=== PATIENT | female | born 1990 | race Caucasian/White ===

== ENCOUNTER → 2016-08-16 10:07 | Outpatient (CLI) | payer OTHER | END | disposition home or self-care (01) | LOC: D.US 08-14 10:30 | DX: R10.11 Right upper quadrant pain (principal) ==

== ENCOUNTER 2018-09-13 22:13 | Emergency (ER) | payer OTHER ==
[~2018-09-13] VITALS: Ht 154.9 cm; Wt 111.6 kg
[2018-09-13 22:21] VITALS: Ht 154.9 cm; Wt 111.6 kg
[2018-09-13] MEDS ORDERED: LITHIUM CARBON150 MG PO (22:23)
[2018-09-13] MEDS ORDERED: ZANTAC300 MG PO (22:23)
[2018-09-13] MEDS ORDERED: ZYRTEC10 MG PO (22:23)
[2018-09-13] MEDS ORDERED: LATUDA40 MG PO (22:23)
[2018-09-13] MEDS ORDERED: ATIVAN1 MG PO (22:24)
[2018-09-13 22:46] LABS: APPEARANCE CLEAR (CLEAR); BACTERIA FEW /hpf (NONE SEEN); BILIRUBIN NEGATIVE (NEGATIVE); COLOR YELLOW (YELLOW); EPITHELIAL CELLS OCC /hpf (0-5); GLUCOSE NEGATIVE (NEGATIVE); HCG URINE NEGATIVE (NEGATIVE); KETONE NEGATIVE (NEGATIVE); NITRITE NEGATIVE (NEGATIVE); PROTEIN NEGATIVE (NEGATIVE); RED CELLS - URINE NONE SEEN /hpf (0-5); SPECIFIC GRAVITY 1.015 (1.005-1.020); UROBILINOGEN NORMAL (NORMAL)
[2018-09-13 23:02] LABS: BASOPHILS 0.1 % (0-2); EOSINOPHILS 0.9 % (0-7); HEMATOCRIT 41.1 % (36.0-48.0); HEMOGLOBIN 14.7 g/dL (12-16); IMMATURE GRANULOCYTES 0.3 % (0-5); LYMPHOCYTES 19.2 % (15-50); MCH 32.2 pg (26.0-34.0); MCHC 35.8 g/dL (31.0-37.0); MCV 89.9 fL (80.0-100.0); MEAN PLATELET VOLUME 9.6 fL (7.4-10.4); MONOCYTES 10.2 % (2-11); NEUTROPHILS 69.3 % (40-80); PLATELET COUNT 256 10x3/uL (130-400); RBC 4.57 10x6/uL (4.00-5.40); RDW 12.6 % (11.5-14.5); WBC 14.1 10x3/uL (4.8-10.8)
[2018-09-13 23:28] LABS: ALBUMIN 3.7 g/dL (3.4-5.0); ANION GAP 12.6 mmol/L (8-16); BILIRUBIN - TOTAL 0.49 mg/dL (0.2-1.3); CALCIUM 8.6 mg/dL (8.5-10.1); POTASSIUM - SERUM 3.6 mmol/L (3.5-5.1); PROTEIN - SERUM 7.6 g/dL (6.4-8.2)
[2018-09-13 23:50] LABS: AMYLASE - SERUM 26 U/L (25-115); LIPASE 120 U/L (73-393)
[2018-09-13 23:56] LABS: TROPONIN-I < 0.017 ng/mL (0.000-0.060)
[2018-09-14] MEDS ORDERED: CIPRO500 MG PO (01:36)
[2018-09-14 02:12] VITALS: BP 114/73
== END 2018-09-14 02:12 | disposition home or self-care (01) ==
LOC: D.ER 22:13
PROVIDERS: Family Medicine
DX: N39.0 Urinary tract infection, site not specified (principal)

== ENCOUNTER 2018-10-20 06:39 | Emergency (ER) | payer MEDICAID ==
[2018-09-13 22:21] VITALS: Ht 154.9 cm; Wt 113.4 kg
[~2018-10-20] VITALS: Ht 154.9 cm; Wt 113.4 kg
[~2018-10-20 06:39] MED LIST: ATIVAN1 MG PO; CIPRO500 MG PO; LATUDA40 MG PO; LITHIUM CARBON150 MG PO; ZANTAC300 MG PO; ZYRTEC10 MG PO
[2018-10-20 07:18] LABS: BASOPHILS 0.1 % (0-2); EOSINOPHILS 0.6 % (0-7); HEMATOCRIT 42.8 % (36.0-48.0); HEMOGLOBIN 15.6 g/dL (12-16); IMMATURE GRANULOCYTES 0.3 % (0-5); LYMPHOCYTES 22.9 % (15-50); MCH 31.6 pg (26.0-34.0); MCHC 36.4 g/dL (31.0-37.0); MCV 86.8 fL (80.0-100.0); MEAN PLATELET VOLUME 9.5 fL (7.4-10.4); MONOCYTES 6.4 % (2-11); NEUTROPHILS 69.7 % (40-80); PLATELET COUNT 274 10x3/uL (130-400); RBC 4.93 10x6/uL (4.00-5.40); RDW 12.1 % (11.5-14.5)
[2018-10-20 07:27] LABS: ALBUMIN 4.2 g/dL (3.4-5.0); ALKALINE PHOSPHATASE 111 U/L (46-116); ALT (SGPT) 52 U/L (10-68); BILIRUBIN - TOTAL 0.42 mg/dL (0.2-1.3); CALC OSMOLALITY 272 mosm/kg (275-300); CALCIUM 9.5 mg/dL (8.5-10.1); CARBON DIOXIDE 26.6 mmol/L (21.0-32.0); CHLORIDE - SERUM 100 mmol/L (98-107); CREATININE - SERUM 0.9 mg/dL (0.6-1.3); GLUCOSE 106 mg/dL (74-106); LIPASE 120 U/L (73-393); POTASSIUM - SERUM 3.6 mmol/L (3.5-5.1); SODIUM 137 mmol/L (136-145); UREA NITROGEN 11 mg/dL (7-18); eGFR NON AFRICAN AMERICAN 81 mL/min (90-120)
[2018-10-20 07:29] LABS: APPEARANCE CLEAR (CLEAR); BILIRUBIN NEGATIVE (NEGATIVE); COLOR YELLOW (YELLOW); GLUCOSE NEGATIVE (NEGATIVE); KETONE NEGATIVE (NEGATIVE); NITRITE NEGATIVE (NEGATIVE); PROTEIN NEGATIVE (NEGATIVE); SPECIFIC GRAVITY 1.015 (1.005-1.020); UROBILINOGEN NORMAL (NORMAL)
[2018-10-20 07:34] LABS: HCG URINE NEGATIVE (NEGATIVE)
[2018-10-20] MEDS ORDERED: ZOFRAN ODT4 MG/UDTAB PO (07:36)
[2018-10-20] MEDS ORDERED: DOXYCYCLINE HY100 M2 PO (07:42)
[2018-10-20 09:15] VITALS: BP 116/63
== END 2018-10-20 09:14 | disposition home or self-care (01) ==
LOC: D.ER 06:39
PROVIDERS: Emergency Medicine
DX: D72.829 Elevated white blood cell count, unspecified (principal); R50.9 Fever, unspecified